=== PATIENT | male | born 1965 | race Caucasian/White ===

== ENCOUNTER 2019-07-10 11:19 | Day surgery (SDC) | payer OTHER, SELFPAY ==
--- NOTE | 2019-07-10 | PATH_ITS ---
[facility] Accession Number: [id number] . 01 Material submitted: . rectum - RECTAL POLYP . 02 Diagnosis: Rectum, Polyp: Hyperplastic polyp. MRV 07/12/2019 1107 Local . 02 Electronically signed: . Alexander Gill MD, PhD, Pathologist NPI- [id number] . 01 Gross description: . RECTAL POLYP: Received in formalin is 1 fragment(s) of amaro, soft tissue measuring 0.4 x 0.3 x 0.2 cm submitted entirely in 1 cassette(s) /TRC 07/11/2019 1542 Local . 02 Pathologist provided ICD-10: K62.1 . 02 CPT . 158108 Performed at: 01 [facility] [address] [id number] MD Bo Newton MD Phone: [phone] Performed at: 02 [facility] [place] [address] [place], [place] [id number] MD Bhumi Killian MD Phone: [phone]
[2019-07-10] MEDS: SODIUM CHLORIDE 0.9% 1,000 ML 200 ML IV (11:47)
[2019-07-10 11:48] VITALS: BP 145/90; PULSE 88; RESP 15; TEMP 36.4; O2SAT 99
[2019-07-10 11:50] VITALS: BMI 30.6
--- NOTE | 2019-07-10 12:07 | PM.HP.1 ---
History of Present Illness History of Present Illness Chief complaint: [id number] Patient History Surgical History History of colonoscopy (Acute) Family & Social History Social History: household members spouse Meds Home Medications and Allergies Home Medications Medication Instructions Recorded Confirmed Type aspirin [Aspirin Low Dose] 81 mg PO DAILY 07/10/19 07/10/19 History krill oil 500 mg PO DAILY 07/10/19 07/10/19 History ranitidine HCl [Zantac] 150 mg PO DAILY 07/10/19 07/10/19 History Allergies Allergy/AdvReac Type Severity Reaction Status Date / Time amoxicillin Allergy Severe Rash Verified 07/10/19 11:35 Review of Systems Review of Systems ROS Unobtainable: All systems reviewed & are unremarkable except as noted in HPI and below Exam Vital Signs (past 8 hours): - 07/10/19 11:48 Temperature 97.5 F L Pulse Rate 88 Respiratory Rate 15 Blood Pressure 145/90 H Pulse Oximetry 99 Oxygen Delivery Method Room Air Narrative Exam Narrative: Awake alert oriented x3, no acute distress, lungs clear, heart regular rate rhythm, no lower extremity edema Assessment & Plan Assessment & Plan narrative: Colon cancer screening, for colonoscopy
[2019-07-10] MEDS: fentaNYL 250 MCG/5 ML INJ IV (12:31)
[2019-07-10] MEDS: MIDAZOLAM 5 MG/5 ML VIAL IV (12:31)
[2019-07-10] MEDS: SODIUM CHLORIDE 0.9% 1,000 ML 42 ML IV (12:35)
--- NOTE | 2019-07-10 12:44 | PM.OP.ENDO ---
Operative Date/Time/Diagnoses Date of procedure: 07/10/19 Procedure & Clinicians Study performed: Colonoscopy with biopsy Moderate conscious sedation was administered by the endoscopy nurse and supervised by the endoscopist. The following parameters were monitored: Oxygen saturation, heart rate, blood pressure, and response to care. Sedation dosage: 5 mg midazolam, 100 mcg fentanyl Indications: Colon cancer screening. Date of Last colonoscopy unknown. Family history of colon cancer in a second-degree relative. Procedure Notes Procedure in detail: Prior to the procedure, history and physical was performed, and patient medications and allergies were reviewed. Preprocedure nursing history and assessment was reviewed. Patient identification and proposed procedure were verified by the physician and nurse in the procedure room. The physical status of the patient was reassessed after the procedure. After informed consent was obtained including risks, benefits, and alternatives, the scope was passed under direct vision. Throughout the procedure, the patient's blood pressure, pulse, and oxygen saturations were monitored continuously. The colonoscope was introduced through the anus and advanced to the cecum as identified by the appendiceal orifice and ileocecal valve. The patient tolerated the procedure well. Bowel prep was deemed adequate to detect polyps greater than 5 mm. Perianal and digital rectal examinations were unremarkable. Retroflexion in the rectum revealed medium-sized grade 2 internal hemorrhoids. A 3 mm sessile polyp was removed from the rectum with a Jumbo biopsy forceps and retrieved. Multiple medium mouthed sigmoid colon diverticula noted Impression: Internal hemorrhoids Sigmoid colon diverticulosis 3 mm rectal polyp removed Sedation minutes: 16 Complications: other (EBL minimal. No complications) Post-procedure Plan for aftercare: Follow-up pathology results Repeat colonoscopy dated date to be determined based on pathology results Resume home medications High fiber diet Discharge home with escort
[2019-07-10 12:47] VITALS: BP 117/73; PULSE 83; RESP 19; TEMP 36.8; O2SAT 93
[2019-07-10 12:55] VITALS: BP 116/83; BP 117/79; PULSE 74; PULSE 75; RESP 14; RESP 16; O2SAT 95; O2SAT 96
== END 2019-07-10 13:10 | disposition home or self-care (01) ==
PROVIDERS: Family Provider Nurse Practitioner Family; PCP Nurse Practitioner Family; Visit Provider Internal Medicine
PROC: 0DJD8ZZ Inspection of Lower Intestinal Tract, Via Natural or Artificial Opening Endoscopic (ICD-10-PCS; CPT 45378; principal; 2019-07-10 12:30)
DX: Z12.11 Encounter for screening for malignant neoplasm of colon (principal); K57.30 Diverticulosis of large intestine without perforation or abscess without bleeding; K64.1 Second degree hemorrhoids; K62.1 Rectal polyp
CPT/HCPCS: 45380; J2250; J3010

== ENCOUNTER → 2020-08-14 09:22 | Outpatient (CLI) | payer OTHER, SELFPAY ==
--- NOTE | 2020-08-14 | DI.MRI.S_ITS ---
PROCEDURE: MR ANGIO NECK W CON INDICATIONS: Pulsatile tinnitus, left ear TECHNIQUE: Axial and sagittal TruFISP through the neck. Coronal dynamic MRA after the administration of contrast in the arterial and venous phases, with rotating 3-dimensional maximum intensity projection (MIP) reformats constructed from subtraction images. COMPARISON: None. FINDINGS: Image quality: Excellent. Carotid system: Great vessels demonstrate a conventional anatomy as they arise from the aortic arch. The origins of the common carotid arteries appear normal. The calibers and courses of the common carotid arteries are likewise normal. The carotid bifurcations appear normal bilaterally. The internal carotid arteries are widely patent up to the [place]. Posterior circulation: The origins of the vertebral arteries are unremarkable. The more superior portions of the vertebral arteries demonstrate normal course and caliber. Vertebral arteries join to form a normal appearing basilar artery. Miscellaneous: Subclavian arteries are patent throughout. Pre-contrast images through the neck demonstrate no soft tissue abnormalities. IMPRESSION: Normal neck MR angiogram, without an imaging explanation found for the patient's presenting symptoms of pulsatile tinnitus. Any quantitative measurements of stenosis were performed using NASCET criteria. Dictated by: Jovi Merritt M.D. on 08/14/2020 at 9:42 Approved by: Jovi Merritt M.D. on 08/14/2020 at 9:43
== END ==
PROVIDERS: Family Provider Nurse Practitioner Family; PCP Nurse Practitioner Family; Referring Provider Otolaryngology; Visit Provider Otolaryngology
DX: H93.A2 Pulsatile tinnitus, left ear (principal)
CPT/HCPCS: 70548

== ENCOUNTER → 2020-09-10 13:57 | Outpatient (CLI) | payer OTHER, SELFPAY ==
--- NOTE | 2020-09-10 13:59 | DI.MRI.S_ITS ---
PROCEDURE: MR ANGIO HEAD WO CON INDICATIONS: Pulsatile tinnitus, left ear TECHNIQUE: Noncontrast axial 3-D [id number] MR angiogram, with 3-dimensional maximum intensity projection (MIP) reformats of the internal carotid arteries and posterior circulation then performed. COMPARISON: [facility], , MR ANGIO NECK W CON, 08/14/2020, 9:42. FINDINGS: Image quality: Excellent. Anterior circulation: Intracranial internal carotid arteries demonstrate normal size and intraluminal flow signal. The flow within the paired anterior cerebral arteries is normal and symmetric. The flow within the middle cerebral arteries is normal and symmetric. The anterior communicating artery is seen. No stenoses, occlusions, or aneurysms. Posterior circulation: Visualized portions of the vertebral arteries demonstrate normal caliber, and join to form a normal appearing basilar artery. The flow within the posterior cerebral arteries is normal and symmetric. No stenoses, occlusions, or aneurysms. In this patient with this given history, scrutiny is given to abnormal vascular loops into the internal auditory canals. None can be seen. IMPRESSION: No imaging explanation is found for this patient's presenting symptoms. No abnormal vascular loops can be seen into the internal auditory canals. Negative for aneurysm. Dictated by: Jovi Merritt M.D. on 09/10/2020 at 13:37 Approved by: Jovi Merritt M.D. on 09/10/2020 at 13:38
== END ==
PROVIDERS: Family Provider Nurse Practitioner Family; PCP Nurse Practitioner Family; Referring Provider Otolaryngology; Visit Provider Otolaryngology
DX: H93.A2 Pulsatile tinnitus, left ear (principal)
CPT/HCPCS: 70544

== ENCOUNTER 2024-07-09 06:47 | Day surgery (SDC) | payer OTHER, SELFPAY ==
[2024-07-09 07:41] VITALS: BP 138/92; PULSE 81; RESP 16; TEMP 36.1; O2SAT 96
--- NOTE | 2024-07-09 08:22 | P.HP_ITS ---
History of Present Illness History of Present Illness Date Patient Seen: 07/09/24 Time Patient Seen: 08:22 Chief complaint: SDC Narrative: 58-year-old man personal history of colonic polyps here for screening colonoscopy. Last colonoscopy 2017. His aunt had colon cancer. No abdominal concerns today. [facility] Surgical History History of colonoscopy Social History household members: spouse Smoking Status: Never smoker Meds Home Medications and Allergies Home Medications Medication Instructions Recorded Confirmed Type krill oil 500 mg capsule 500 mg PO DAILY 07/10/19 07/10/19 History ezetimibe 10 mg tablet 10 mg PO DAILY 07/09/24 07/09/24 History omeprazole 20 mg capsule,delayed 20 mg PO DAILY 07/09/24 07/09/24 History release Allergies Allergy/AdvReac Type Severity Reaction Status Date / Time amoxicillin Allergy Severe Rash Verified 07/09/24 07:29 Exam Vital Signs (past 8 hours): - 07/09/24 07:41 Temperature 96.9 F L Pulse Rate 81 Respiratory Rate 16 Blood Pressure 138/92 H Pulse Oximetry 96 Oxygen Delivery Method Room Air Oxygen Delivery Method Room Air Narrative Exam Narrative: General adult man alert oriented no acute distress Chest nonlabored respiration Extremities warm well perfused Assessment & Plan Assessment and plan (1) Personal history of colonic polyps: Status: Acute Assessment & Plan narrative: The patient requires colorectal screening and colonoscopy is recommended. Technical details were discussed. Risks, benefits, alternatives explained. Risks including but not limited to myocardial infarction, aspiration, bleeding, pain, missed lesion, incomplete examination, need for further radiographic studies, intestinal injury, and need for major abdominal surgery were discussed. All questions were answered to their satisfaction, and they are in agreement with this plan. Time-Based Coding :: [TOTAL MINUTES] spent with patient and on the chart (including review of chart, obtaining history, exam, reviewing outside data, placing orders, documenting exam and treatment plan, and counseling patient) on [DATE].
[2024-07-09 08:54] VITALS: BP 140/91; PULSE 81; RESP 17; TEMP 36.3; O2SAT 96
--- NOTE | 2024-07-09 08:59 | P.OP.COLON_ITS ---
Operative Date/Time/Diagnoses Date of procedure: 07/09/24 Time of procedure: 08:59 Pre-op diagnosis: Colorectal screening Procedure & Clinicians Study performed: Screening colonoscopy Same procedure as scheduled: Yes Surgeon: Luis Carlson Procedure Notes Procedure in detail: The history and physical was performed/updated and the patient is ASA class is 2. The procedure was discussed in detail with the patient. Potential risks complications including infection, bleeding, missed diagnosis, perforation, need for surgery, and were explained. Their questions were answered and informed consent was obtained. Patient was brought to the procedure room and placed standard monitoring equipment. The patient's vital signs were monitored continuously throughout the entire procedure. Prior to starting time-out was performed. The patient was placed in the left lateral recumbent position. Procedural sedation was administered by anesthesia. Examination began with a thorough inspection of the perianal area there was no evidence of fissures, fistulae, external hemorrhoids or cutaneous malignancy. The colonoscopy scope was then placed into the anal canal and was advanced to the cecum, which was identified by the ileocecal valve, the appendiceal orifice and the confluence of the taenia. The scope was then slowly withdrawn examining colon thoroughly in all directions, irrigating it of any residual stool. The scope was retroflexed within the rectum The patient tolerated the procedure well. They will be discharged once criteria are met. The prep was of good/excellent quality. The withdrawl time was 6 minutes. FINDINGS * Internal hemorrhoids * Mild diverticulosis of distal colon Specimen(s): none sent Impression: Hemorrhoids Post-procedure Recommendations: Colonoscopy in 10 years and High fiber diet Disposition: same day surgery
[2024-07-09 09:00] VITALS: BP 140/91; PULSE 79; RESP 25; O2SAT 96
[2024-07-09 09:03] VITALS: BP 128/91; PULSE 75; RESP 12; TEMP 36.3; O2SAT 96
== END 2024-07-09 09:20 | disposition home or self-care (01) ==
PROVIDERS: Family Provider Nurse Practitioner Family; Referring Provider Surgery; Visit Provider Surgery
PROC: 0DJD8ZZ Inspection of Lower Intestinal Tract, Via Natural or Artificial Opening Endoscopic (ICD-10-PCS; CPT 45378; principal; 2024-07-09 08:15)
DX: Z12.11 Encounter for screening for malignant neoplasm of colon (principal); Z86.0100 Personal history of colon polyps, unspecified; K64.8 Other hemorrhoids; K57.30 Diverticulosis of large intestine without perforation or abscess without bleeding
CPT/HCPCS: 45378; J2704